=== PATIENT | male | born 1955 | race Hispanic/Latino ===

== ENCOUNTER 2022-02-12 12:28 | Outpatient (RCR) | payer OTHER ==
[~2022-02-12 12:28] MED LIST: LIDOCAINE VISC 2% SOLN 15 ML UDC ONE
[2022-02-12] MEDS ORDERED: LIDOCAINE VISC 2% SOLN 15 ML UDC ONE (12:41)
== END 2022-02-13 ==
LOC: WCC 12:28
PROVIDERS: ATTEND Family Medicine Adult Medicine
DX: E11.628 Type 2 diabetes mellitus with other skin complications (principal); T24.231A Burn of second degree of right lower leg, initial encounter; T25.022A Burn of unspecified degree of left foot, initial encounter; T30.0 Burn of unspecified body region, unspecified degree; E78.5 Hyperlipidemia, unspecified; S82.841A Displaced bimalleolar fracture of right lower leg, initial encounter for closed fracture; S97.01XA Crushing injury of right ankle, initial encounter; Y92.69 Other specified industrial and construction area as the place of occurrence of the external cause